=== PATIENT | female | born 1990 | race Caucasian/White ===

== ENCOUNTER 2019-03-29 17:16 | Emergency (ER) | payer MEDICAID, SELFPAY ==
[2019-03-29] VITALS (33 sets, daily range): BP systolic 106–147; BP diastolic 64–107; PULSE 94–136; RESP 14–30; TEMP 36.6; O2SAT 94–98
--- NOTE | 2019-03-29 17:49 | W.ED.GENAD ---
Discharge Plan Disposition Patient Disposition: HOME Condition: Good Discharge Details Chief Complaint: SOB Clinical Impression: CAP (community acquired pneumonia) Primary Care Provider: Jamie Rangel ED Provider: Philippe Mcconnell [place] Meds and New Rx's Prescriptions: New doxycycline hyclate [Morgidox] 100 mg capsule 100 mg PO BID Qty: 14 RF: 0 Continued medroxyprogesterone [Depo-Provera] 150 MG/1 ML suspension 150 mg IM Q 12 WEEKS RF: 0 levothyroxine [Synthroid] 50 MCG tablet 50 mcg PO DAILY RF: 0 albuterol sulfate [ProAir HFA] 90 mcg/actuation Hfa Aerosol Inhaler 2 puff INHALATION Q6H PRNRF: 0 Discontinued azithromycin 250 mg Tablet 250 mg PO DAILY RF: 0 Discharge Instructions Instructions: Doxycycline (By mouth), Community Acquired Pneumonia (ED) Additional Instructions: CT scan shows left-sided pneumonia. We will change your antibiotic from Zithromax to doxycycline. Please remember that this antibiotic will photosensitize your skin. Be sure to rest and drink plenty of fluids. Use ibuprofen or acetaminophen as needed for fever and discomfort. Use inhaler as needed for cough and wheezing. You should discuss with primary care your thyroid medication and dosing. Follow-up with them on Tuesday as planned. Return to ED over the weekend if you develop mental status changes, increasing shortness of breath, vomiting, other concerns Referrals: Jamie Rangel [Primary Care Provider] - Discharge Data Discharge Date/Time-TO BE ENTERED AT DEPARTURE: 03/29/19 21:15 Medical Decision Making <Darnell Wilson MD - Last Filed: 03/30/19 13:49> 18:00 --28-year-old female with history of bronchitis in the remote past that required albuterol, here with productive cough cough for 4 days, seen at OSH earlier today and diagnosed with bronchitis and started on azithromycin and albuterol inhaler, seeking further emergent care for persistent shortness of breath despite albuterol and single dose of azithromycin. Patient is saturating well in no respiratory distress. She is tachycardic and anxious. Of note, her children are sick with similar respiratory illness. I reviewed discharge instructions from [facility]. I requested ED visit note from [facility]. Plan to obtain chest x-ray. Patient has also had an exacerbation over the past month or so of intermittent rectal bleeding. She also notes that she has some upper abdominal epigastric burning intermittently. Patient notes that she has had rectal bleeding intermittently for years and was told that she has irritable bowel syndrome. She has a appointment scheduled with her primary care physician and believes she will be having a colonoscopy soon. Consider anemia. I will check CBC. Patient also notes noncompliance with her medication regimen. She has not been taking Synthroid for the past 6 months. She specifically notes difficulty with transportation and inability to maintain primary care appointments. Plan to check screening labs including CBC to assess for anemia as well as TSH to assess for hypothyroidism. I will give IV fluid bolus given dehydration on exam and tachycardia. --Initial labs reviewed and hypokalemia noted. K-Dur 20meq given. Leukocytosis noted. Chest x-ray reviewed and interpreted by radiology: No acute process. Patient reassessed: patient remained tachycardic after IV fluid bolus although improved from prior. D-dimer was checked and elevated. Plan for CTA of the chest. Patient provided informed consent to proceed with CT. care signed out to Dr. Mcconnell. <Philippe Mcconnell MD - Last Filed: 03/29/19 21:06> Patient signed out to me pending results of CTA. CTA shows no pulmonary embolus. No aortic abnormality. She does have a reticular nodular infiltrate in the left lingula and central left lower lobe. Patient's heart rate has come down with fluids. She is on Zithromax prescribed by [facility]. However, I spoke with her at length about antibiotic resistance in this local area. We know that for us Zithromax no longer covers CAP very well. I will switch her to doxycycline. I did make her aware of the photosensitivity reaction related to doxycycline. She may continue use of the inhaler. She is to rest and drink plenty of fluids to stay hydrated. We also discussed her thyroid and need for restarting her Synthroid. She has follow-up with her primary care doctor on Tuesday. She can further discuss her thyroid issue as well as have recheck of her respiratory status then. Return to ED for increasing shortness of breath, vomiting, mental status changes, other concerns or problems. Lab Data Lab results reviewed: Yes I reviewed the patient's lab results. HPI <Darnell Wilson MD - Last Filed: 03/30/19 13:49> General Mode of arrival: ambulatory. Date/Time Provider Initiated Documentation: 03/29/19 17:22. Limitations to Documentation: no limitations. Information obtained by: patient. HPI Narrative: 28-year-old female with history of hypothyroidism, IBS, here with chief complaint of productive cough and associated shortness of breath. Patient notes symptoms are worsening over the past 4 days. Cough is productive of white and intermittently green sputum. She has 2 children who are sick with similar cough and respiratory illness. She does note that she may have had some subjective fever. Patient was seen at outside hospital emergency department earlier today and diagnosed with bronchitis and prescribed azithromycin and albuterol inhaler which she has initiated without relief of symptoms. Patient also notes she has not been taking her medication as prescribed including Synthroid for the past 6 months. She has had transportation issues. She also notes intermittent rectal bleeding that has been more persistent over the past month or so. She has had associated upper abdominal epigastric burning discomfort. No abdominal pain or bleeding currently. Related Data Home Medications Medication Instructions Recorded Confirmed levothyroxine [Synthroid] 50 mcg PO DAILY 06/11/14 11/08/17 medroxyprogesterone [Depo-Provera] 150 mg IM Q 12 WEEKS vial 11/22/17 albuterol sulfate [ProAir HFA] 2 puff INHALATION Q6H PRN 03/29/19 03/29/19 doxycycline hyclate [Morgidox] 100 mg PO BID #14 cap 03/29/19 Previous Rx's Medication Instructions Recorded doxycycline hyclate [Morgidox] 100 mg PO BID #14 cap 03/29/19 Allergies Allergy/AdvReac Type Severity Reaction Status Date / Time acetaminophen Allergy Intermediate SWELLING Unverified 03/29/19 17:38 [From Tylenol-Codeine] coconut oil Allergy Intermediate lip Unverified 03/29/19 17:38 swelling codeine Allergy Intermediate Swelling/Ed Unverified 03/29/19 17:38 mic codeine phosphate Allergy Intermediate SWELLING Unverified 03/29/19 17:38 [From Tylenol-Codeine] ibuprofen [From Motrin] Allergy Intermediate lips swell Unverified 03/29/19 17:38 General Stated Complaint: SOB ELVIA: 3 Review of Systems <Darnell Wilson MD - Last Filed: 03/30/19 13:49> Review of Systems All systems reviewed & are unremarkable except as noted in HPI and below Constitutional Reports fever(s) Respiratory Reports cough PFSH <Darnell Wilson MD - Last Filed: 03/30/19 13:49> Medical History Abnormal uterine bleeding (AUB) BMI 45.0-49.9, adult Hypothyroid Migraine headache without aura Tobacco use Surgical History Ligation of fallopian tube Family History Mother Diabetes Maternal Aunt Diabetes Social History Smoking/Tobacco Use Status: Current every day Tobacco Type: smokeless tobacco Alcohol Intake: current Alcohol Intake frequency: holidays/special occasions only Drug use: Never Do you feel safe at home: Yes Do you feel safe in your relationship?: Yes Exam <Darnell Wilson MD - Last Filed: 03/30/19 13:49> Const General: cooperative and no acute distress HENMT Mouth: mucous membranes dry Throat: posterior oropharynx normal Eyes Conjunctivae: normal conjunctivae Sclera: normal sclerae Resp Auscultation: no rales, rhonchi lower bilaterally and no wheezes Cardio Jugular venous pressure: no JVD Rate: tachycardic Rhythm: regular rhythm GI Palpation: soft, not firm, no guarding, no masses, not rigid and nontender Skin General skin exam: no rashes or lesions noted Neuro General: alert, awake, oriented x3 and tone normal Extrem General: no edema Psych Appearance: grossly normal Mental Status: mental status grossly normal Speech and Movement: speech and movement normal Affect: anxious affect Course <Darnell Wilson MD - Last Filed: 03/30/19 13:49> Vital Signs Temperature 36.6 C 03/29/19 17:22 Pulse 136 H 03/29/19 17:22 Respiratory Rate 20 03/29/19 17:22 Blood Pressure 120/64 03/29/19 17:22 Pulse Oximetry 96 03/29/19 17:22 Temperature 36.6 C 03/29/19 17:22 Temperature Source Temporal Artery Scan 03/29/19 17:22 Pulse 136 H 03/29/19 17:22 Respiratory Rate 20 03/29/19 17:28 Respiratory Effort 03/29/19 17:28 Respiratory Depth Normal 03/29/19 17:28 Respiratory Pattern Tachypnea 03/29/19 17:28 Blood Pressure 120/64 03/29/19 17:22 Blood Pressure Position Sitting 03/29/19 17:22 Pulse Oximetry 96 03/29/19 17:22 Oxygen Delivery Method Room Air 03/29/19 17:22 Oxygen Flow Rate 0 03/29/19 17:22 Sign Out <Darnell Wilson MD - Last Filed: 03/30/19 13:49> Sign Out Data: Sign Out Comment: care signed out to Dr. Mcconnell with plan to follow-up diagnostics CTA pending and reassess patient for disposition. Last updated by Darnell Wilson MD at 03/29/19 20:11
[2019-03-29] MEDS: Lactated Ringers 1,000 ML 1000 ML IV (18:00)
[2019-03-29 18:13] LABS: Abs Immature Grans 0.04 k/cumm (0.0-0.09); HCT 41.4 % (36.0-46.0); HGB 13.6 g/dL (12.0-15.5); Mean Corp. HGB Concentration 32.9 g/dL (32.0-36.0); Mean Corpuscular Hemoglobin 27.5 pg (27.0-33.0); Mean Corpuscular Volume 83.8 fL (80-95); Mean Platelet Volume 9.8 fL (8.0-11.0); Platelet Count 362 x1000/uL (130-400); RBC 4.94 m/cumm (4.00-5.20); RBC Distribution Width 14.8 % (11.7-14.6); White Blood Cell Count 12.18 k/cumm (4.4-10.8)
[2019-03-29] MEDS: Inhaler, Assist Device 1 EACH MC (18:16)
[2019-03-29 18:24] LABS: Atypical Lymphocytes % 1
[2019-03-29 18:25] LABS: Absolute Eosinophil Count 0.12 k/cumm (0.0-0.7); Absolute Lymphocyte Count 3.17 k/cumm (1.2-3.4); Absolute Monocyte Count 0.61 k/cumm (0.11-0.7); Absolute Neutrophil Count 8.28 k/cumm (1.2-6.7); Diff Comment Manual Differential; RBC Morphology Normal
--- NOTE | 2019-03-29 18:25 | DI.RAD_ITS ---
SYMPTOM/DIAGNOSIS: COUGH, SHORTNESS OF BREATH CHEST X-RAY: PA AND LATERAL. Comparison 09/10/15 Heart size and pulmonary vasculature are within normal limits. No focal consolidating infiltrates, effusions or pneumothoraces identified. There may be mild peribronchial thickening present. The bones are intact. IMPRESSION: Findings which may represent bronchitis. No focal areas of consolidation to suggest pneumonia are seen.
--- NOTE | 2019-03-29 18:31 | DI.VRAD_ITS ---
EXAM: XR Chest, 2 Views EXAM DATE/TIME: 03/29/2019 5:49 PM CLINICAL HISTORY: 28 years old, female; Signs and symptoms; Cough and shortness of breath; Patient HX: Cough for days and SOB TECHNIQUE: Imaging protocol: XR of the chest, 2 views. COMPARISON: CR CHEST 2 VIEWS PA,LAT 09/10/2015 12:16 AM FINDINGS: Lungs: Low lung volumes. Mild peribronchial thickening and perihilar stranding suggesting possible bronchitis. No gross pulmonary infiltrates. Pulmonary vaculature normal. Pleural space: No pleural effusion. No pneumothorax. Heart/Mediastinum: Heart size normal. No mediastinal widening. Bones/joints: No acute osseous abnormalities are identified. Other findings: No tracheal shift. IMPRESSION: 1. Suspect bronchitis. No gross pulmonary infiltrates. 2. Low lung volumes. Dictated and Authenticated by: Reji Shah MD. Ordering:DAVID Patrick MD
[2019-03-29 18:32] LABS: ALT 39 U/L (12-78); AST 22 U/L (15-37); Albumin 3.1 g/dL (3.4-5.0); Alkaline Phosphatase 103 U/L (46-116); Anion Gap 10.3 mmol/L (3-11); BUN 6 mg/dL (7-18); Bilirubin, Total 0.4 mg/dL (0.2-1.0); CO2 25.7 mmol/L (21.0-32.0); Calcium 8.7 mg/dL (8.5-10.1); Chloride 101 mmol/L (98-107); Glucose 175 mg/dL (70-100); Potassium 3.3 mmol/L (3.5-5.1); Sodium 137 mmol/L (136-145); Total Protein 7.5 g/dL (6.4-8.2)
[2019-03-29 18:36] LABS: TSH (W/Ref FT4) 9.38 uIU/mL (0.358-3.74)
[2019-03-29 18:37] LABS: Troponin I < 0.02 ng/mL (0.00-0.06)
[2019-03-29] MEDS: Potassium Chloride 10 MEQ TABCR 20 MEQ PO (18:51)
[2019-03-29 18:54] LABS: FREE T4 1.02 ng/dL (0.76-1.46)
[2019-03-29 19:45] LABS: D-Dimer 826 ng/mlFEU (<500)
--- NOTE | 2019-03-29 19:58 | DI.CT_ITS ---
SYMPTOM/DIAGNOSIS: SHORTNESS OF BREATH, TACHYCARDIA, ELEVATED D-DIMER CT SCAN CHEST, CTA CT angiography was performed with multi slice acquisition and multi planar and 3D reconstruction. CT angiography of the chest was performed. There is no evidence of a pulmonary embolus. The thoracic aorta is of normal caliber. No evidence of an aneurysm or dissection is seen. Heart size is within normal limits. No significant pericardial effusion is seen. No evidence of right heart strain is seen. No significant thoracic adenopathy is seen. The measured lymph nodes are less than 1 cm in size on short axis. No effusion or pneumothorax is identified. No focal consolidating infiltrates are present. The bones are intact. No acute upper abdominal abnormalities identified. IMPRESSION: No evidence of pulmonary embolus, thoracic aortic dissection or aneurysm.
[2019-03-29] MEDS: Omnipaque 350 MG/ML 100 ML BTL IJ (20:24)
--- NOTE | 2019-03-29 20:42 | DI.VRAD_ITS ---
EXAM: CT Angiography Chest With Contrast EXAM DATE/TIME: 03/29/2019 7:59 PM CLINICAL HISTORY: 28 years old, female; Signs and symptoms; Shortness of breath and other: Tachycardia, elevated ddimer TECHNIQUE: Imaging protocol: Axial computed tomographic angiography images of the chest with intravenous contrast using CT angiography protocol. Coronal and sagittal reformatted images were created and reviewed. 3D rendering: MIP reconstructed images were created and reviewed. Radiation optimization: All CT scans at this facility use at least one of these dose optimization techniques: automated exposure control; mA and/or kV adjustment per patient size (includes targeted exams where dose is matched to clinical indication); or iterative reconstruction. Contrast material: 350; Contrast volume: 88 ml; Contrast route: LT AC INJ.; COMPARISON: SC XR CHEST 2V PA LATERAL 03/29/2019 6:24 PM FINDINGS: Pulmonary arteries: The pulmonary arteries enhance appropriately with no evidence of pulmonary embolism. Aorta: The aorta enhances appropriately without evidence of dissection or aneurysm. Thyroid: The visualized thyroid gland demonstrates no gross abnormality. Lungs: No tracheobronchial abnormalities. Minimal reticular nodular pulmonary density is seen in the lingular portion of the left upper lobe and in the perihilar left lower lobe, suspicious for mild reticulonodular infiltrates. No pulmonary nodules or mass lesions are identified. Pleural space: No pleural effusion. No pneumothorax. Heart: Heart size normal. No pericardial effusion. Mediastinum: The esophagus is largely contracted but demonstrates no gross abnormality. Liver: Mild fatty infiltration of the liver . No focal hepatic lesions or intrahepatic biliary dilatation. Lymph nodes: No supraclavicular or axillary adenopathy. There are few mildly prominent prevascular nodes measuring up to 8 mm short axis and a few mildly prominent pretracheal retrocaval nodes measuring up to 9 mm short axis. These are nonspecific. No hilar adenopathy. Bones/joints: No acute osseous abnormalities are identified. Soft tissues: The soft tissues of the chest wall demonstrate no gross abnormality. IMPRESSION: 1. No evidence of pulmonary embolism or aortic dissection. 2. Minimal reticulonodular densities in the lingula and central left lower lobe suspicious for mild reticulonodular infiltrate. 3. Fatty liver. 4. Mildly prominent mediastinal nodes, nonspecific. Dictated and Authenticated by: Reji Shah MD. Ordering:DAVID Patrick MD
== END 2019-03-29 21:15 | disposition home or self-care (01) ==
PROVIDERS: Student in an Organized Health Care Education/Training Program; Emergency Provider Emergency Medicine; PCP Family Medicine
DX: J18.9 Pneumonia, unspecified organism (principal); R00.0 Tachycardia, unspecified; F41.9 Anxiety disorder, unspecified; E87.6 Hypokalemia; K62.5 Hemorrhage of anus and rectum; E03.9 Hypothyroidism, unspecified
CPT/HCPCS: 36415; 71275; 80053; 96360; 99285; 71046; 84439; 84443; 84484; 85025; 85379; 99284; J3490

== ENCOUNTER 2020-10-04 10:11 | Emergency (ER) | payer MEDICAID, SELFPAY ==
--- NOTE | 2020-10-04 10:14 | ED.GENADUL_ITS ---
Discharge Plan Disposition Patient Disposition: HOME Condition: Stable Discharge Details Clinical Impression: Broken tooth Primary Care Provider: Jamie Rangel ED Provider: Vicky Sandoval Home Meds and New Rx's Prescriptions: Continued albuterol sulfate [ProAir HFA] 90 mcg/actuation Hfa Aerosol Inhaler 2 puff INHALATION Q6H PRNRF: 0 acetaminophen [Acetaminophen Extra Strength] 500 mg Tablet 1,000 mg PO Q6H PRNRF: 0 Discharge Instructions Instructions: Acute Dental Trauma (ED) Additional Instructions: Drink plenty of fluids. Follow soft diet for the next few days. Avoid hard foods such as nuts or popcorn which could cause further breakage or pain of your tooth. Take Tylenol as needed and directed for pain. Call a dentist on the dental follow-up list you were given to schedule a follow- up appointment for reevaluation. Return immediately to the emergency department if you develop any worsening or new concerning symptoms such as fever, increased pain, redness, dental or facial swelling. Discharge Data Discharge Physician: Vicky Sandoval Medical Decision Making 29-year-old female presents for evaluation of broken tooth. There is a small chip fracture at tip of tooth #17 noted to anterior lingual wall aspect. No pulp or dentin exposed. There are no signs of infection or abscess. No drooling, trismus or submandibular swelling. I do not see an indication for antibiotics at this time. Patient given dental follow-up list. Advised to follow a soft diet for the next few days. Usual and customary return precautions given prior to discharge. Medical Records Medical records reviewed: Yes I reviewed the patient's medical records. HPI General Mode of arrival: ambulatory . Date/Time Provider Initiated Documentation: 10/04/20 10:12 . Limitations to Documentation: no limitations . Information obtained by: patient . HPI Narrative: Patient is a 29-year-old female who presents for evaluation after she broke a piece of her left posterior lower tooth last night while eating a hard kernel of popcorn. She states she has not having pain but states it just feels on from a sharp edge that is rubbing when she eats or swallows. She denies any fever, swelling, drainage. She denies any facial swelling. She states she has not seen a dentist for the past 3 years due to insurance issues. She states she now has Medicaid and plans to follow-up with a dentist. Related Data Home Medications Medication Instructions Recorded Confirmed albuterol sulfate [ProAir HFA] 2 puff INHALATION Q6H PRN 03/29/19 10/04/20 acetaminophen [Acetaminophen Extra 1,000 mg PO Q6H PRN 10/04/20 10/04/20 Strength] Allergies Allergy/AdvReac Type Severity Reaction Status Date / Time coconut oil Allergy Intermediate lip Unverified 10/04/20 10:21 swelling codeine Allergy Intermediate Swelling/Ed Unverified 10/04/20 10:21 mic codeine phosphate Allergy Intermediate SWELLING Unverified 10/04/20 10:21 [From Tylenol-Codeine] ibuprofen [From Motrin] Allergy Intermediate lips swell Unverified 10/04/20 10:21 General ELVIA: 3 Review of Systems All systems reviewed & are unremarkable except as noted in HPI and below Constitutional Constitutional: Reports as per HPI, Denies chills and Denies fever(s) Eyes Eyes: Denies blurry vision ENT Ears, Nose, Mouth, and Throat: Denies dizziness, Denies sore throat and Denies throat swelling Cardiovascular Cardiovascular: Denies chest pain and Denies dyspnea Respiratory Respiratory: Denies cough and Denies dyspnea Gastrointestinal Gastrointestinal: Denies abdominal pain, Denies diarrhea and Denies vomiting Genitourinary Genitourinary: Denies hematuria and Denies dysuria Musculoskeletal Musculoskeletal: Denies back pain and Denies numbness Integumentary/Breasts Skin/Breast: Denies lesions and Denies rash Neurologic Neurologic: Denies dizziness, Denies localized weakness and Denies numbness Allergic/Immunologic Allergic/Immunologic: Denies throat swelling [facility] Medical History (Updated 10/04/20 @ 10:40 by Vicky Sandoval DO) Abnormal uterine bleeding (AUB) x1yr. 2-3mo of oligomenorrhea followed by several weeks of bleeding. BMI 45.0-49.9, adult Hypothyroid managed by PCP. Migraine headache without aura with menses. 1-2x/w when not menstruating. Tobacco use started as teenager. down to 3 cigarettes/day. Surgical History Ligation of fallopian tube 4yrs ago, after of daughter. Family History Mother Diabetes Maternal Aunt Diabetes Social History Smoking/Tobacco Use Status: Current every day Tobacco Type: smokeless tobacco Smoking risk assessment performed?: Yes Alcohol Intake: current Alcohol Intake frequency: holidays/special occasions only Drug use: Never Do you feel safe at home: Yes Do you feel safe in your relationship?: Yes Exam Const General: cooperative, healthy appearing and no acute distress HENMT Head: normal to inspection Ears: hearing grossly normal bilaterally and external ears normal Mouth: oral mucosae normal Teeth image: 1. Broken edge of tooth #17 on anterior lingual wall aspect and tip. Does not seem to extend to base of tooth and mainly seems that is the superior tip of the tooth. No significant tenderness to palpation of tooth. No surrounding e rythema, edema, drainage or bleeding. No pulp or dentin exposed. Throat: posterior oropharynx normal Eyes General: appearance normal, both eyes and all related structures Neck Neck: normal visual inspection Resp Effort & Inspection: normal respiratory effort and able to speak in complete sentences Cardio Rate: regular rate Skin General skin exam: no rashes or lesions noted Neuro General: patient alert, patient awake and patient oriented x3 Motor: muscle tone normal throughout Extrem General: normal to inspection and full ROM Psych Appearance: grossly normal Affect: normal affect
[2020-10-04 10:15] VITALS: BP 129/85; PULSE 89; RESP 16; TEMP 36.2; O2SAT 97
[2020-10-04 10:52] VITALS: BP 129/85; PULSE 89; RESP 16; TEMP 36.2; O2SAT 97
== END 2020-10-04 10:47 | disposition home or self-care (01) ==
PROVIDERS: Emergency Provider Physician Assistant; PCP Family Medicine
DX: R68.84 Jaw pain; S02.5XXA Fracture of tooth (traumatic), initial encounter for closed fracture; X58.XXXA Exposure to other specified factors, initial encounter
CPT/HCPCS: 99282; 99283

== ENCOUNTER 2021-07-21 13:11 | Outpatient (REF) | payer MEDICAID, SELFPAY ==
[2021-07-21 14:26] LABS: Abs Immature Grans 0.02 10^3/uL (0.0-0.06); Absolute Basophil Count 0.07 10^3/uL (0.0-0.2); Absolute Eosinophil Count 0.17 10^3/uL (0.0-0.7); Absolute Monocyte Count 0.78 10^3/uL (0.1-0.8); Absolute Neutrophil Count 5.23 10^3/uL (1.2-6.7); Basophils % 0.8; Eosinophils % 1.8; HCT 40.5 % (36.0-46.0); Immature Grans % 0.2; Lymphocytes % 32.4; MCHC 32.1 % (32.0-36.0); MCV 87.3 fL (80-95); MPV 10.5 fL (8.0-11.0); Monocytes % 8.4; Neutrophils % 56.4; Nucleated RBC 0 %; Platelet Count 357 10^3/uL (130-400); RBC 4.64 10^6/uL (3.93-5.22); RDW 13.5 % (11.7-14.6); RDW-SD 42.5 fL; WBC 9.27 10^3/uL (4.4-10.8)
[2021-07-21 14:45] LABS: ALT 28 U/L (14-59); AST 11 U/L (15-37); Albumin 3.4 g/dL (3.4-5.0); Alkaline Phosphatase 85 U/L (46-116); Anion Gap 8.3 mmol/L (3-11); BUN 10 mg/dL (7-18); Bilirubin, Total 0.2 mg/dL (0.2-1.0); CO2 27.7 mmol/L (21.0-32.0); CREATININE 0.8 mg/dL (0.55-1.02); Calcium 9.4 mg/dL (8.5-10.1); Chloride 104 mmol/L (98-107); Glucose 100 mg/dL (74-106); Potassium 4.1 mmol/L (3.5-5.1); Sodium 140 mmol/L (136-145); TSH (W/Ref FT4) 8.06 uIU/mL (0.36-3.74); Total Protein 7.4 g/dL (6.4-8.2)
[2021-07-21 15:11] LABS: FREE T4 0.92 ng/dL (0.76-1.46)
[2021-07-23 00:50] LABS: Vitamin D 25 Total 14.7 ng/mL (30-100)
== END 2021-07-21 13:12 | disposition home or self-care (01) ==
LOC: NCHCN 13:11
PROVIDERS: PCP Family Medicine; Visit Provider Family Medicine
DX: E03.9 Hypothyroidism, unspecified (principal); F41.8 Other specified anxiety disorders; E55.9 Vitamin D deficiency, unspecified
CPT/HCPCS: 80053; 82306; 84439; 84443; 85025

== ENCOUNTER 2021-10-29 13:12 | Emergency (ER) | payer MEDICAID, SELFPAY ==
--- NOTE | 2021-10-29 13:15 | DI.CT_ITS ---
Exam(s) CT HEAD WO EXAM: CT HEAD WO CLINICAL HISTORY: Headache. TECHNIQUE: Imaging Protocol: Axial computed tomography images with coronal and sagittal reformatted images were created and reviewed COMPARISON: No exams were available for comparison FINDINGS: Ventricles and Extra axial spaces: Normal in size and morphology for the patient's age. Hemorrhage: None. Cerebral parenchyma: Normal. Midline shift: None. Brainstem/Cerebellum: Normal. Calvarium: Normal. Visualized Paranasal sinuses/Mastoids: Clear. Soft Tissues: Unremarkable. IMPRESSION: 1. No acute intracranial process. 2. Results of this exam have been verbally communicated with provider. RADIATION DOSE DELIVERED: 914.46mGy.cm Total DLP DATA REPOSITORY: All CT scans at this facility are submitted to the National Radiology Data Registry (NRDR) Dose Index Registry (DIR) with the [employer] (ACR). RADIATION OPTIMIZATION: All CT scans at this facility use at least one of these dose optimization te chniques: automated exposure control; mA and/or kV adjustment per patient size (includes targeted exa ms where dose is matched to clinical indication); or iterative reconstruction.
[2021-10-29 13:16] VITALS: BP 144/83; PULSE 74; RESP 18; TEMP 36.3; O2SAT 97
--- NOTE | 2021-10-29 13:41 | W.ED.GENAD ---
Discharge Plan Disposition Patient Disposition: HOME Condition: Improving Discharge Details Clinical Impression: Headache Primary Care Provider: Jamie Rangel ED Provider: Mahsa Edmond Home Meds and New Rx's Prescriptions: New gcnoipouli-uvbdnlqzhoxni-tgni 50-325-40 mg capsule 1 cap PO Q6H PRN (Reason: headache) Qty: 10 RF: 0 No Action acetaminophen 500 mg capsule 1,000 mg PO Q6H PRNRF: 0 ascorbate calcium (vitamin C) 500 mg tablet 500 mg PO DAILY RF: 0 amoxicillin 500 mg capsule 500 mg PO TID RF: 0 Excedrin Migraine 250-250-65 mg Tablet 2 tab PO PRN PRNRF: 0 Discharge Instructions Instructions: General Headache (ED) Additional Instructions: Take the Fioricet 1 tablet 4 times daily as needed for headache. Take the Zofran 20 to 30 minutes before eating or drinking anything up to 3 times daily. Follow up with primary care provider in 3-5 days. Return to ED sooner if any worsening or concerns. Increase oral fluids. Please take Tylenol with food every 4-6 hours as needed for pain and swelling when not taking the Fioricet. Please consider following up with neurology regarding the head CT and to discuss the headaches. Stand Alone Forms: Work Release Referrals: Jamie Rangel [Primary Care Provider] - 5 days Marie Green MD [ [facility] STAFF PHYSICIAN] - 1 week Medical Decision Making 30-year-old female presents to the ER with chief complaint of migraine headache which began yesterday. She reports it started in the back of her neck radiates up around to the left side of her head. She is in the typical migraine however it is worse than normal and has never lasted this long. She did throw up once prior to arrival around noon. She took an Excedrin this morning and Tylenol. She also reports that she has been having a heavier than normal menstrual period but that seems to become angledozer operator today. She denies any recent trauma. No focal neuro deficits noted on exam. She denies any fever or shortness of breath or chest pain or abdominal pain. CBC, CMP, urine , liter normal saline and Zofran ordered. 1434: Liter normal saline, 4 Zofran ordered. IV is infusing without difficulty. Per medical staff credentialing coordinator patient is reporting improvement in her headache. Awaiting CT head results. EXAM: CT HEAD WO CLINICAL HISTORY: Headache. TECHNIQUE: Imaging Protocol: Axial computed tomography images with coronal and sagittal reformatted images were created and reviewed COMPARISON: No exams were available for comparison FINDINGS: Ventricles and Extra axial spaces: Normal in size and morphology for the patient's age. Hemorrhage: None. Cerebral parenchyma: Normal. Midline shift: None. Brainstem/Cerebellum: Normal. Calvarium: Normal. Visualized Paranasal sinuses/Mastoids: Clear. Soft Tissues: Unremarkable. IMPRESSION: 1. No acute intracranial process. 2. Results of this exam have been verbally communicated with provider. Related patient reevaluated she reports that her headache is improving. Discussed CT results with patient and follow-up care. Discussed following up with neurologist to discuss headaches and CT. Prescription written for Fioricet and home care, verbalized understanding. Patient remained hemodynamically stable throughout stay. This text was generated using Kampyleation system, please disregard any oddities of phrase or misspellings. HPI General Mode of arrival: ambulatory. Date/Time Provider Initiated Documentation: 10/29/21 13:22. Limitations to Documentation: no limitations. Information obtained by: patient, RN notes reviewed and old records reviewed. HPI Narrative: 30-year-old female presents to the ER with chief complaint of migraine headache which began yesterday. She reports it started in the back of her neck radiates up around to the left side of her head. She is in the typical migraine however it is worse than normal and has never lasted this long. She did throw up once prior to arrival around noon. She took an Excedrin this morning and Tylenol. She also reports that she has been having a heavier than normal menstrual period but that seems to become angledozer operator today. She denies any recent trauma. No focal neuro deficits noted on exam. She denies any fever or shortness of breath or chest pain or abdominal pain. Related Data Home Medications Medication Instructions Recorded Confirmed ascorbate calcium (vitamin C) 500 500 mg PO DAILY 03/18/21 10/29/21 mg tablet acetaminophen 500 mg capsule 1,000 mg PO Q6H PRN cap 05/27/21 10/29/21 amoxicillin 500 mg PO TID 10/29/21 10/29/21 ciqoari-raxdvshtexiyi-skmgvtby 2 tab PO PRN PRN 10/29/21 10/29/21 [Excedrin Migraine] zsyggsjieb-kdjysvpsmznzh-rkwm 1 cap PO Q6H PRN #10 cap 10/29/21 Previous Rx's Medication Instructions Recorded sslfehuncp-goceycymexrsz-lebv 1 cap PO Q6H PRN #10 cap 10/29/21 Allergies Allergy/AdvReac Type Severity Reaction Status Date / Time coconut oil Allergy Intermediate lip Unverified 10/29/21 13:21 swelling codeine Allergy Intermediate Swelling/Ed Unverified 10/29/21 13:21 mic codeine phosphate Allergy Intermediate SWELLING Unverified 10/29/21 13:21 [From Tylenol-Codeine] ibuprofen [From Motrin] Allergy Intermediate lips swell Unverified 10/29/21 13:21 General Stated Complaint: Headache ELVIA: 3 Review of Systems All systems reviewed & are unremarkable except as noted in HPI and below Constitutional Constitutional: Reports headache(s) ENT Ears, Nose, Mouth, and Throat: Reports headache(s) Neurologic Neurologic: Reports headache(s) PFSH All Active Problems (Updated 10/29/21 @ 15:16 by Mahsa Edmond) Headache (Acute) Bilateral carpal tunnel syndrome (Acute) Medical History Abnormal uterine bleeding (AUB) x1yr. 2-3mo of oligomenorrhea followed by several weeks of bleeding. Anxiety with depression BMI 45.0-49.9, adult Diarrhea Headache, chronic migraine without aura History of IBS Hypothyroid managed by PCP. Insomnia Migraine headache without aura with menses. 1-2x/w when not menstruating. Tibia fracture Tobacco use started as teenager. down to 3 cigarettes/day. Vitamin D deficiency Surgical History H/O bilateral salpingectomy Hx of colonoscopy Ligation of fallopian tube 4yrs ago, after of daughter. Family History Mother Diabetes Thyroid disease Hypertension Chronic mental illness Maternal Aunt Diabetes Maternal Grandfather Heart disease Hypertension Paternal Aunt Diabetes Social History Smoking/Tobacco Use Status: Former Tobacco Use Smoking risk assessment performed?: Yes Alcohol Intake: never Drug use: Never Substance use type: does not use Do you feel safe at home: Yes Do you feel safe in your relationship?: Yes Exam Narrative Exam Narrative: Constitutional: Alert and oriented x3. Appears stated age. Obese body habitus. Head: Normocephalic, no trauma. Eyes: Pupils PERRL, Red reflex noted, EOM's intact. Eyelids symmetrical without lesions, discharge, or swelling. ENT: Bilateral TM's WNL, External ear normal to inspection, no mastoid TTP, swelling, or erythema, Nasal turbinates WNL, no nasal discharge. Normal dentition, Posterior pharynx WNL, no exudate. Chest: RRR, Normal S1, S2, distal pulses intact. Resp: Lungs clear to auscultation bilaterally, no wheezes, rales, or rhonchi. Abdomen: Soft, non-distended, Normoactive bowel sounds all 4 quads. Musculoskeletal: Normal gait, 5/5 strength to all four extremities. Skin: No suspicious rashes or lesions. Capillary refill less than 2 sec. Neurologic: Cranial nerves II-XII intact. Alert and oriented x 3. Motor: No deficits noted. Sensory: Intact bilaterally all 4 extremities. Reflexes: DTR's intact bilaterally.. Hematologic/Lymphatic: No ecchymosis, no lymphadenopathy. Course Vital Signs Vital signs: Vital Signs Temperature 36.3 C L 10/29/21 13:16 Pulse 74 10/29/21 13:16 Respiratory Rate 18 10/29/21 13:16 Blood Pressure 144/83 H 10/29/21 13:16 Pulse Oximetry 97 10/29/21 13:16 Temperature 36.3 C L 10/29/21 13:16 Temperature Source Temporal Artery Scan 10/29/21 13:16 Pulse 74 10/29/21 13:16 Respiratory Rate 18 10/29/21 13:16 Respiratory Effort Non-Labored 10/29/21 13:24 Blood Pressure 144/83 H 10/29/21 13:16 Blood Pressure Position Sitting 10/29/21 13:16 Pulse Oximetry 97 10/29/21 13:16 Oxygen Delivery Method Room Air 10/29/21 13:16 Oxygen Flow Rate 0 10/29/21 13:16
[2021-10-29] MEDS: Normal Saline 1,000 ML 1000 ML IV (13:45)
[2021-10-29] MEDS: Ondansetron 4 MG/2 ML VIAL IVP (13:48)
[2021-10-29 13:59] LABS: Abs Immature Grans 0.03 10^3/uL (0.0-0.06); Absolute Basophil Count 0.06 10^3/uL (0.0-0.2); Absolute Lymphocyte Count 3.08 10^3/uL (1.2-3.4); Absolute Monocyte Count 0.82 10^3/uL (0.1-0.8); Absolute Neutrophil Count 5.06 10^3/uL (1.2-6.7); Basophils % 0.6; Eosinophils % 2.2; HGB 12.5 g/dL (11.2-15.7); Immature Grans % 0.3; Lymphocytes % 33.3; MCH 26.9 pg (27.0-33.0); MCHC 32.1 % (32.0-36.0); MCV 83.9 fL (80-95); Monocytes % 8.9; Neutrophils % 54.7; Nucleated RBC 0 %; Platelet Count 341 10^3/uL (130-400); RBC 4.65 10^6/uL (3.93-5.22); RDW 13.8 % (11.7-14.6); RDW-SD 41.9 fL; WBC 9.25 10^3/uL (4.4-10.8)
[2021-10-29 14:18] LABS: ALT 24 U/L (14-59); AST 15 U/L (15-37); Albumin 3.4 g/dL (3.4-5.0); Alkaline Phosphatase 88 U/L (46-116); Anion Gap 8.2 mmol/L (3-11); BUN 13 mg/dL (7-18); Bilirubin, Total 0.2 mg/dL (0.2-1.0); CO2 26.8 mmol/L (21.0-32.0); CREATININE 0.8 mg/dL (0.55-1.02); Calcium 8.9 mg/dL (8.5-10.1); Chloride 104 mmol/L (98-107); Glucose 100 mg/dL (74-106); Potassium 3.8 mmol/L (3.5-5.1); Sodium 139 mmol/L (136-145); Total Protein 7.8 g/dL (6.4-8.2)
[2021-10-29 15:00] VITALS: BP 124/80; PULSE 87; RESP 18; TEMP 36.2; O2SAT 98
[2021-10-29] MEDS: Ondansetron O.D.T. 4 MG TABEF, 3 TABS/BTL PO (15:22)
[2021-10-29 15:23] VITALS: BP 124/80; PULSE 87; RESP 18; TEMP 36.2; O2SAT 98
--- NOTE | 2021-10-29 15:25 | NUR.NOTE ---
Faxed referral for Neurology for a migraine in 1-2 weeks. Put the referral in the hospice care consultant's box for follow-up.
== END 2021-10-29 15:33 | disposition home or self-care (01) ==
PROVIDERS: Emergency Provider Registered Nurse Emergency; PCP Family Medicine
DX: G43.909 Migraine, unspecified, not intractable, without status migrainosus (principal); R11.10 Vomiting, unspecified
CPT/HCPCS: 36415; 80053; 81025; 96361; 96374; 99284; 70450; 85025; 99283; J2405

== ENCOUNTER 2021-12-10 12:03 | Outpatient (REF) | payer MEDICAID, SELFPAY ==
[2021-12-10 12:34] LABS: HCT 36.9 % (36.0-46.0); HGB 11.7 g/dL (11.2-15.7); MCHC 31.7 % (32.0-36.0); MPV 9.4 fL (8.0-11.0); Platelet Count 341 10^3/uL (130-400); RBC 4.34 10^6/uL (3.93-5.22); WBC 8.94 10^3/uL (4.4-10.8)
[2021-12-10 13:44] LABS: COVID-19 PCR Negative (Negative)
[2021-12-10 13:48] LABS: ALT 28 U/L (14-59); AST 13 U/L (15-37); Albumin 3.3 g/dL (3.4-5.0); Alkaline Phosphatase 95 U/L (46-116); Anion Gap 9.9 mmol/L (3-11); BUN 8 mg/dL (7-18); Bilirubin, Total 0.2 mg/dL (0.2-1.0); CO2 25.1 mmol/L (21.0-32.0); CREATININE 0.8 mg/dL (0.55-1.02); Calcium 8.8 mg/dL (8.5-10.1); Chloride 104 mmol/L (98-107); Glucose 126 mg/dL (74-106); Sodium 139 mmol/L (136-145)
[2021-12-10 13:49] LABS: Source Nasal
== END 2021-12-10 12:04 | disposition home or self-care (01) ==
LOC: LBO 12:03
PROVIDERS: PCP Family Medicine; Visit Provider Surgery
DX: K62.5 Hemorrhage of anus and rectum (principal); Z01.818 Encounter for other preprocedural examination; Z68.43 Body mass index [BMI] 50.0-59.9, adult; Z87.19 Personal history of other diseases of the digestive system; E03.9 Hypothyroidism, unspecified
CPT/HCPCS: 36415; 80053; 85027; 87635

== ENCOUNTER 2022-02-15 05:34 | Outpatient (CLI) | payer MEDICAID, SELFPAY ==
--- NOTE | 2022-02-15 14:00 | NS.NUTBLAN_ITS ---
Poppy was referred for weight management education prior to bariatric surgery. Over the years, she has tried many diets including keto, intermittent fasting, vegan and lower carb without any significant results. 5'1 297 lbs BMI: 54 Labs (2019): Vit D: 14.7 L, TSH: 8.06 H Fasting blood sugar (12/10/21): 126 mg/dl Poppy reports she was 98 lbs when she became with her first child. She gained > 100 lbs with but was able to maintain a weight of 150 lbs. After her second and third child, she started to increase in weight so by the time she became 28, she was 298 lbs. Poppy had gestational diabetes with last 2 kids and has strong family hx of obesity, DM and heart disease. Her two youngest children are autistic and she needs to be healthy to care for them. Her goal weight is 180-190 lbs. She does not take Vitamin D or medications for hypothyroidism. She gets food stamps but it does not last the month. She can only work 1 day per week due to knee/back pain. Her current boy friend lives with her but enjoys eating out and big meals. Food Record: B: breakfast sandwich, premier protein shake, L: skips, often snacks on gold fish, Dinner: salad/vegetable when they can afford it, often pasta. Session today focused on explaining how weight loss surgery affects food intake and weight. Provided written material and meal plan to follow prior to surgery. Focus for Poppy at this time is to start Vitamin D supplementation for repletion and to increase protein intake mid day to help avoid snacking on chips, crackers. Plan: 1. follow up with PCP re: prescription for Vitamin D and ask if needs medications for hypothyroidism. 2. follow up scheduled for 03/22/22 at 2 pm.
== END 2022-02-15 05:35 | disposition home or self-care (01) ==
LOC: DS 05:34
PROVIDERS: PCP Family Medicine; Visit Provider Dietitian, Registered
DX: E66.8 Other obesity (principal); Z68.43 Body mass index [BMI] 50.0-59.9, adult; Z71.3 Dietary counseling and surveillance
CPT/HCPCS: 97802

== ENCOUNTER 2022-12-27 15:51 | Outpatient (REF) | payer MEDICAID, SELFPAY ==
[2022-12-27 19:38] LABS: Abs Immature Grans 0.03 10^3/uL (0.0-0.06); Absolute Basophil Count 0.07 10^3/uL (0.0-0.2); Absolute Eosinophil Count 0.18 10^3/uL (0.0-0.7); Absolute Lymphocyte Count 2.85 10^3/uL (1.2-3.4); Absolute Monocyte Count 0.79 10^3/uL (0.1-0.8); Absolute Neutrophil Count 5.25 10^3/uL (1.2-6.7); Basophils % 0.8; HCT 39.4 % (36.0-46.0); HGB 12.1 g/dL (11.2-15.7); Immature Grans % 0.3; Lymphocytes % 31.1; MCH 25.5 pg (27.0-33.0); MCHC 30.7 % (32.0-36.0); MCV 83 fL (80-95); Monocytes % 8.6; Neutrophils % 57.2; Platelet Count 386 10^3/uL (130-400); RBC 4.74 10^6/uL (3.93-5.22); RDW 14.6 % (11.7-14.6); RDW-SD 43.9 fL; WBC 9.17 10^3/uL (4.4-10.8)
[2022-12-27 19:47] LABS: Iron 33 ug/dL (50-170); Total Iron Binding Capacity 439 ug/dL (250-450); Transferrin Sat 8 % (15-50)
[2022-12-27 20:12] LABS: Vitamin D 25 Total 8.8 ng/mL (30-100)
[2022-12-27 20:15] LABS: ALT 27 U/L (14-59); AST 13 U/L (15-37); Albumin 3.4 g/dL (3.4-5.0); Alkaline Phosphatase 96 U/L (46-116); Anion Gap 9.5 mmol/L (3-11); BUN 12 mg/dL (7-18); Bilirubin, Total 0.2 mg/dL (0.2-1.0); CO2 26.5 mmol/L (21.0-32.0); CREATININE 0.9 mg/dL (0.55-1.02); Calculated LDL 88 mg/dL (<100); Chloride 105 mmol/L (98-107); Cholesterol 149 mg/dL (<200); Estimated GFR 86.03 (mL/min/1.73m2); Folate 4.1 ng/mL (8.6-20.0); Glucose 86 mg/dL (74-106); HDL Cholesterol 40 mg/dL (40-60); Magnesium 1.9 mg/dL (1.8-2.4); Potassium 4.4 mmol/L (3.5-5.1); Sodium 141 mmol/L (136-145); TSH (W/Ref FT4) 5.65 uIU/mL (0.36-3.74); Total Protein 7.4 g/dL (6.4-8.2); Triglyceride 107 mg/dL (<150); Vitamin B12 278 pg/mL (193-986)
[2022-12-27 20:39] LABS: FREE T4 0.89 ng/dL (0.76-1.46)
== END 2022-12-27 15:52 | disposition home or self-care (01) ==
LOC: NCHCN 15:51
PROVIDERS: PCP Family Medicine; Visit Provider Nurse Practitioner Family
DX: R53.83 Other fatigue (principal); E03.9 Hypothyroidism, unspecified; N92.0 Excessive and frequent menstruation with regular cycle; E66.01 Morbid (severe) obesity due to excess calories; E46 Unspecified protein-calorie malnutrition; E55.9 Vitamin D deficiency, unspecified
CPT/HCPCS: 80053; 80061; 82306; 82607; 82746; 83540; 83550; 83735; 84439; 84443; 85025

== ENCOUNTER 2023-12-12 23:22 | Emergency (ER) | payer MEDICAID, SELFPAY ==
[2023-12-12 23:30] VITALS: BP 182/119; PULSE 127; RESP 24; TEMP 36.6; O2SAT 98
--- NOTE | 2023-12-12 23:58 | ED.GENADUL_ITS ---
HPI General Mode of arrival: ambulatory . Date/Time Provider Initiated Documentation: 12/12/23 23:23 . Limitations to Documentation: no limitations . Information obtained by: patient . History of Present Illness 33 year old F presents to the emergency department with the chief complaint of Rectal pain, described as moderate, Quality is described as sharp, Patient started experiencing this day(s) (2) and it has been constant. No relieving factors improve symptom(s), No exacerbating factors reported . Patient notes no other symptoms.; denies fever/chills. Patient did receive the following treatments prior to arrival, none Related Data Home Medications Medication Instructions Recorded Confirmed acetaminophen 500 mg capsule 1,000 mg PO Q6H PRN 05/27/21 12/12/23 ucriuhpvpw-zxpjwhufixlas-srzwsivi 1 cap PO Q6H PRN headache #10 caps 10/29/21 12/12/23 50 mg-325 mg-40 mg capsule ascorbate calcium (vitamin C) 500 500 mg PO DAILY 11/27/21 12/12/23 mg tablet ascorbic acid 100 mg-elderberry 1 tab PO PRN 11/27/21 12/12/23 fruit 50 mg chewable tablet (Airborne (elderberry)) fluoxetine 20 mg capsule 20 mg PO DAILY 11/27/21 12/12/23 multivitamin 1 tab PO DAILY 11/27/21 12/12/23 calcium carbonate 600 mg calcium 600 mg PO DAILY 12/10/21 12/12/23 (1,500 mg) tablet (Calcium) cholecalciferol (vitamin D3) 50 50 mcg PO DAILY 12/10/21 12/12/23 mcg (2,000 unit) capsule Previous Rx's Medication Instructions Recorded cwsekvizpt-zrvveijiekaga-nprlkups 1 cap PO Q6H PRN headache #10 caps 10/29/21 50 mg-325 mg-40 mg capsule Allergies Allergy/AdvReac Type Severity Reaction Status Date / Time coconut oil Allergy Intermediate lip Unverified 12/12/23 23:35 swelling codeine Allergy Intermediate Swelling/Ed Unverified 12/12/23 23:35 mic codeine phosphate Allergy Intermediate SWELLING Unverified 12/12/23 23:35 [From Tylenol-Codeine] ibuprofen [From Motrin] Allergy Intermediate lips swell Unverified 12/12/23 23:35 General Stated Complaint: GenMedical ELVIA: 3 Review of Systems All systems reviewed & are unremarkable except as noted in HPI and below Constitutional Constitutional: Denies chills, Denies fever(s) and Denies weakness ENT Ears, Nose, Mouth, and Throat: Denies change in voice Cardiovascular Cardiovascular: Denies chest pain and Denies dyspnea Respiratory Respiratory: Denies cough and Denies dyspnea Gastrointestinal Gastrointestinal: Denies abdominal pain, Denies nausea and Denies vomiting Musculoskeletal Musculoskeletal: Denies joint swelling Neurologic Neurologic: Denies weakness Exam Const General: no acute distress Orientation: alert HENMT Head: normal to inspection Ears: external ears normal General nose exam: external nose normal Mouth: moist mucous membranes Eyes General: appearance normal, both eyes and all related structures Neck Neck: normal visual inspection Resp Effort & Inspection: normal respiratory effort and able to speak in complete sentences Cardio Rate: regular rate GI Palpation: soft and nontender Skin General skin exam: no rashes or lesions noted Neuro General: patient alert and patient oriented x3 Extrem General: normal to inspection Psych Mental Status: mental status grossly normal Course Vital Signs Vital signs: Vital Signs Temperature 36.6 C 12/12/23 23:30 Pulse 127 H 12/12/23 23:30 Respiratory Rate 24 12/12/23 23:30 Blood Pressure 182/119 H 12/12/23 23:30 Pulse Oximetry 98 12/12/23 23:30 Temperature 36.6 C 12/12/23 23:30 Temperature Source Temporal Artery Scan 12/12/23 23:30 Pulse 127 H 12/12/23 23:30 Respiratory Rate 24 12/12/23 23:30 Blood Pressure 182/119 H 12/12/23 23:30 Blood Pressure Position Standing 12/12/23 23:30 Pulse Oximetry 98 12/12/23 23:30 Oxygen Delivery Method Room Air 12/12/23 23:30 Oxygen Flow Rate 0 12/12/23 23:30 Pain Level 10 12/12/23 23:30 Comment pt unable to sit 12/12/23 23:30 Medical Decision Making 33-year-old female with a history of prior issues with her rectum including rectal fissures, IBS, who comes in with 2 days of worsening rectal pain similar to prior episodes of her fissures. Denies any abdominal pain or vomiting, no fevers, no bloody bowel movements. On exam her abdomen is soft and nontender. Using nurse marketing systems analyst Asael Pandey, performed rectal exam no visible fissure on exam does have a 2 mm nonthrombosed hemorrhoid at the 9 o'clock position no other abnormalities or bleeding noted. Will place lidocaine and reassess Patient feeling better, states that she feels it would be easier to apply lidocaine with the syringe that we have so 1 was given for her to go home with, she will follow-up with her primary care provider and return precautions given Differential Diagnosis Differential Diagnosis: Hemorrhoid, anal fissure Quality:SDOH Health Related Social Needs: No Data to Display PFSH All Active Problems (Updated 12/13/23 @ 01:00 by Dm Riley MD) Pain, rectal (Acute) Hypoalbuminemia due to protein-calorie malnutrition (Acute) Weight gain (Acute) Elevated glucose (Acute) BMI 50.0-59.9, adult (Acute) Preop testing (Acute) Rectal pain (Acute) Rectal bleeding (Acute) Bilateral carpal tunnel syndrome (Acute) Medical History Abnormal uterine bleeding (AUB) x1yr. 2-3mo of oligomenorrhea followed by several weeks of bleeding. Anxiety with depression BMI 45.0-49.9, adult Diarrhea Headache, chronic migraine without aura History of IBS Hypothyroid managed by PCP. Insomnia Migraine headache without aura with menses. 1-2x/w when not menstruating. Tibia fracture Tobacco use started as teenager. down to 3 cigarettes/day. Vitamin D deficiency Surgical History H/O bilateral salpingectomy Hx of colonoscopy Ligation of fallopian tube 4yrs ago, after of daughter. Family History Mother Diabetes Thyroid disease Hypertension Chronic mental illness Maternal Aunt Diabetes Maternal Grandfather Heart disease Hypertension Paternal Aunt Diabetes Social History Smoking/Tobacco Use Status: Former Tobacco Use Smoking risk assessment performed?: Yes Alcohol Intake: never Drug use: Never Substance use type: does not use Do you feel safe at home: Yes Do you feel safe in your relationship?: Yes Discharge Plan Disposition Patient Disposition: Home Condition: Stable Discharge Details Clinical Impression: Pain, rectal Primary Care Provider: Noam Ferreira ED Provider: Dm Riley Home Meds and New Rx's Prescriptions: Continued acetaminophen 500 mg capsule 1,000 mg PO Q6H PRN calcium carbonate [Calcium 600] 600 mg calcium (1,500 mg) tablet 600 mg PO DAILY cholecalciferol (vitamin D3) 50 mcg (2,000 unit) capsule 50 mcg PO DAILY fluoxetine 20 mg capsule 20 mg PO DAILY ascorbic acid-elderberry fruit [Airborne (elderberry)] 100-50 mg tablet,chewable 1 tab PO PRN ascorbate calcium (vitamin C) 500 mg tablet 500 mg PO DAILY multivitamin Tablet 1 tab PO DAILY bhucscjgjj-waokkqsnmupjh-gove 50-325-40 mg capsule 1 cap PO Q6H PRN (Reason: headache) Qty: 10 0RF Rx Instructions: Do not take more than 6 tablets in 24 hours Discharge Instructions Additional Instructions: You have a small nonthrombosed hemorrhoid, the rest of your rectal exam appeared normal Follow-up with your primary care provider within 1 to 2 weeks If you feel more ill, have severe abdominal pain, or new symptoms such as high fevers return to the emergency department
[2023-12-13] MEDS: Lidocaine 2% Jelly 6 ML SYR TP ×2 (00:57→01:06)
[2023-12-13 00:59] VITALS: BP 204/116; PULSE 128; RESP 24; TEMP 36.6; O2SAT 100
[2023-12-13 01:00] VITALS: RESP 18
[2023-12-13 01:02] VITALS: BP 178/100; PULSE 100; RESP 18; O2SAT 100
== END 2023-12-13 01:08 | disposition home or self-care (01) ==
LOC: ER 12-13 01:58
PROVIDERS: Emergency Provider Emergency Medicine; PCP Family Medicine
DX: K62.89 Other specified diseases of anus and rectum (principal); K64.4 Residual hemorrhoidal skin tags; Z87.891 Personal history of nicotine dependence
CPT/HCPCS: 99283; 99282

== ENCOUNTER 2024-01-20 14:55 | Observation (INO) | payer MEDICAID, SELFPAY ==
[2024-01-20] MEDS: Lactated Ringers 1,000 ML 50 ML IV (14:55)
[2024-01-20 14:58] VITALS: BP 144/90; PULSE 96; RESP 20; TEMP 36.7; O2SAT 95
--- NOTE | 2024-01-20 15:27 | W.ED.GENAD ---
Discharge Plan Disposition Patient Disposition: Admit to [facility] Condition: Stable Discharge Details Chief Complaint: GenMedical Clinical Impression: External hemorrhoid, thrombosed Primary Care Provider: Noam Ferreiar ED Provider: Darnell Wilson Home Meds and New Rx's Prescriptions: No Action acetaminophen 500 mg capsule 1,000 mg PO Q6H PRN fluoxetine 20 mg capsule 20 mg PO DAILY yxccrpddes-xkijlgczoxsxf-llon 50-325-40 mg capsule 1 cap PO Q6H PRN (Reason: headache) Qty: 10 0RF Rx Instructions: Do not take more than 6 tablets in 24 hours HPI General Mode of arrival: ambulatory. Date/Time Provider Initiated Documentation: 01/20/24 15:08. Limitations to Documentation: no limitations. Information obtained by: patient. HPI Narrative: 33-year-old female presents with chief complaint of hemorrhoid. Patient notes since July she has been having waxing and waning rectal pain with hemorrhoid and fissure. She states that she has irregular bowel movements and is often constipated. She has had significant difficulty maintaining outpatient appointments to address this condition. Symptoms have worsened over the past few days. She is now not able to sit or lie supine secondary to pain. She is having difficulty sleeping. Patient has been using steroid cream, lidocaine cream and some other compounded cream over the past few months and this is not currently providing relief. Patient does note some associated rectal bleeding intermittently. Related Data Home Medications Medication Instructions Recorded Confirmed acetaminophen 500 mg capsule 1,000 mg PO Q6H PRN 05/27/21 01/20/24 kkoywkvbvv-kxsmgyylewvrp-lxsinjqn 1 cap PO Q6H PRN headache #10 caps 10/29/21 01/20/24 50 mg-325 mg-40 mg capsule fluoxetine 20 mg capsule 20 mg PO DAILY 11/27/21 01/20/24 Previous Rx's Medication Instructions Recorded nxsvdaunaf-afwbfkaiayrje-yjycwbsc 1 cap PO Q6H PRN headache #10 caps 10/29/21 50 mg-325 mg-40 mg capsule Allergies Allergy/AdvReac Type Severity Reaction Status Date / Time coconut oil Allergy Intermediate lip Unverified 01/20/24 15:02 swelling codeine Allergy Intermediate Swelling/Ed Unverified 01/20/24 15:02 mic codeine phosphate Allergy Intermediate SWELLING Unverified 01/20/24 15:02 [From Tylenol-Codeine] ibuprofen [From Motrin] Allergy Intermediate lips swell Unverified 01/20/24 15:02 General Stated Complaint: GenMedical ELVIA: 3 Review of Systems Constitutional Constitutional: Denies fever(s) Gastrointestinal Gastrointestinal: Reports as per HPI Exam Const General: cooperative, uncomfortable and no acute distress HENMT Mouth: moist mucous membranes GI Palpation: soft, not firm, no guarding, not rigid and nontender Rectal Exam - female: hemorrhoids (large inflamed hemorrhoid 2:00) and No laceration Skin General skin exam: no rashes or lesions noted Course Vital Signs Vital signs: Vital Signs Temperature 36.7 C 01/20/24 14:58 Pulse 96 H 01/20/24 14:58 Respiratory Rate 20 01/20/24 14:58 Blood Pressure 144/90 H 01/20/24 14:58 Pulse Oximetry 95 01/20/24 14:58 Temperature 36.7 C 01/20/24 14:58 Temperature Source Skin 01/20/24 14:58 Pulse 96 H 01/20/24 14:58 Respiratory Rate 20 01/20/24 14:58 Respiratory Effort Normal 01/20/24 15:01 Blood Pressure 144/90 H 01/20/24 14:58 Blood Pressure Position Standing 01/20/24 14:58 Pulse Oximetry 95 01/20/24 14:58 Oxygen Delivery Method Room Air 01/20/24 14:58 Oxygen Flow Rate 0 01/20/24 14:58 Medical Decision Making 1532??33-year-old female here with painful inflamed hemorrhoid. It sounds like she has been dealing with hemorrhoids and also potentially rectal fissure for months. I have contacted general surgeon on-call, Dr. Brito, discussed ED presentation and course, I have asked him to evaluate the patient for potential surgical treatment. 1622 --patient was evaluated by Dr. Brito who will plan for emergent surgical intervention. Patient admitted to the surgical service. Care transition to Dr. Brito. Quality:SDOH Health Related Social Needs: No Data to Display PFSH All Active Problems (Updated 01/20/24 @ 16:23 by Darnell Wilson MD) External hemorrhoid, thrombosed (Acute) Hypoalbuminemia due to protein-calorie malnutrition (Acute) Weight gain (Acute) Elevated glucose (Acute) BMI 50.0-59.9, adult (Acute) Preop testing (Acute) Rectal pain (Acute) Rectal bleeding (Acute) Bilateral carpal tunnel syndrome (Acute) Medical History History of IBS Diarrhea Headache, chronic migraine without aura Insomnia Tibia fracture Anxiety with depression Vitamin D deficiency Tobacco use started as teenager. down to 3 cigarettes/day. Abnormal uterine bleeding (AUB) x1yr. 2-3mo of oligomenorrhea followed by several weeks of bleeding. BMI 45.0-49.9, adult Hypothyroid managed by PCP. Migraine headache without aura with menses. 1-2x/w when not menstruating. Surgical History H/O bilateral salpingectomy Hx of colonoscopy Ligation of fallopian tube 4yrs ago, after of daughter. Family History Mother Diabetes Thyroid disease Hypertension Chronic mental illness Maternal Aunt Diabetes Maternal Grandfather Heart disease Hypertension Paternal Aunt Diabetes Social History Smoking/Tobacco Use Status: Former Tobacco Use Smoking risk assessment performed?: Yes Alcohol Intake: never Drug use: Never Substance use type: does not use Do you feel safe at home: Yes Do you feel safe in your relationship?: Yes
--- NOTE | 2024-01-20 16:08 | W.ANESPRE ---
General Info Date of Service Date Performed: 01/20/24 Height: 5 ft Weight: 127.006 kg Body Mass Index (BMI): 54.6 Meds Allergies and Home Medications Allergies Allergy/AdvReac Type Severity Reaction Status Date / Time coconut oil Allergy Intermediate lip Unverified 01/20/24 15:02 swelling codeine Allergy Intermediate Swelling/Ed Unverified 01/20/24 15:02 mic codeine phosphate Allergy Intermediate SWELLING Unverified 01/20/24 15:02 [From Tylenol-Codeine] ibuprofen [From Motrin] Allergy Intermediate lips swell Unverified 01/20/24 15:02 Home Medication Medication Instructions Recorded acetaminophen 500 mg capsule 1,000 mg PO Q6H PRN 05/27/21 [id number]-luvueupkaswef-nbwpqijp 1 cap PO Q6H PRN headache #10 caps 10/29/21 50 mg-325 mg-40 mg capsule fluoxetine 20 mg capsule 20 mg PO DAILY 11/27/21 PFSH Active Problems Active Problems: Problem Status Onset Code Hypoalbuminemia due to protein-calorie malnutrition E88.09, E46 Weight gain R63.5 Elevated glucose R73.09 BMI 50.0-59.9, adult Z68.43 Preop testing Z01.818 Rectal pain K62.89 Rectal bleeding K62.5 Bilateral carpal tunnel syndrome G56.03 Medical History Medical History History of IBS Diarrhea Headache, chronic migraine without aura Insomnia Tibia fracture Anxiety with depression Vitamin D deficiency Tobacco use started as teenager. down to 3 cigarettes/day. Abnormal uterine bleeding (AUB) x1yr. 2-3mo of oligomenorrhea followed by several weeks of bleeding. BMI 45.0-49.9, adult Hypothyroid managed by PCP. Migraine headache without aura with menses. 1-2x/w when not menstruating. Surgical History Surgical History H/O bilateral salpingectomy Hx of colonoscopy Ligation of fallopian tube 4yrs ago, after of daughter. Tobacco Smoking/Tobacco Use Status: Former Tobacco Use Alcohol Alcohol Intake: never Substance Use Substance use: Never Substance use type: does not use Vital Signs and Lab Results Vital Signs Most Recent Vital Signs in EMR: Most Recent Vital Signs Temp Pulse Resp BP Pulse Ox 36.7 C 96 H 20 144/90 H 95 01/20/24 14:58 01/20/24 14:58 01/20/24 14:58 01/20/24 14:58 01/20/24 14:58 Lab Results Blood Type / Crossmatch: No Data to Display Complete Blood Count: No Data to Display Complete Metabolic Panel: No Data to Display Liver Function Panel: No Data to Display Coagulation Panel: No Data to Display Cardiac Panel: No Data to Display Arterial Blood Gas: No Data to Display Venous Blood Gas: No Data to Display Pancreas Panel: No Data to Display Thyroid Panel: No Data to Display Infectious Disease: No Data to Display Blood Cultures: No Data to Display Toxicology Panel: No Data to Display Panel: No Data to Display Anesthesia Assessment and Plan Anesthesia History Personal History: No History of Anesthesia Complications Family History: No Family History of Anesthesia Complications Exercise Tolerance Exercise Tolerance: Metabolic Equivalents>4 Cardiac & Pulmonary Exam Cardiac Exam: Normal S1/S2 Heart Sounds Pulmonary Exam: Clear Bilateral Breath Sounds Implantable Cardiac Device Does patient have a Pacemaker or an ICD?: No Airway Exam Known Difficult Airway: No Mallampati Class: 1 Mouth Opening: Normal (> 3cm) Thyromental Distance: Greater than 3 cm Neck Range of Motion: Full ROM Neck Circumference: Thick Teeth Condition: Normal Dentition ASA Classification ASA Score: ASA 3 Emergency Case?: No NPO Status NPO Status: NPO Small Non-Fatty Meal >6 hours Status Status: Negative HCG Anesthesia Plan Resuscitation Status: Full Code Anesthesia Technique: Spinal Anesthesia Airway Planned: Natural Airway Monitors Used: Standard Monitors
--- NOTE | 2024-01-20 16:11 | W.PREOPHP ---
Assessment and Plan Assessment and plan (1) External hemorrhoid, thrombosed: Status: Acute Assessment and plan: based on the history and general appearance, I suspect this is most likely a thrombosed external hemorrhoid. I think the best option is anorectal exam under anesthesia and hemorroidectomy, or adjustment of the surgical plan based on what is seen. I think she has a good understanding of what to expect in terms of the risks and benefits of the procedures as well as the recovery. She was able to provide informed consent today and we will proceed to the OR as soon as possible. History of Present Illness History of Present Illness Chief Complaint: Anal pain Narrative: Poppy is 33 years old. She comes to the ER after referral from urgent care. She has had several months of hemorrhoid pain. She was seen there around July with similar complaints. She also reports a history of waxing and waning constipation and diarrhea. She underwent colonoscopy at that time and was diagnosed with hemorrhoids and anal fissure. She was prescribed topical ointments, suppositories and some type of compounded ointment (she does not recall if it is diltiazem or nitroglycerine). She has had moderate success with those therapies up until a few days ago, when the pain around the anus became acutely more intense. This was associated with some occasional blood on the toilet paper. She also reports the subjective sensation of a lump in the area. Review of Systems Constitutional Constitutional: Denies chills, Denies fatigue, Denies fever(s) and Denies poor appetite Eyes Eyes: Reports system reviewed and no additional complaints, except as documented ENT Ears, Nose, Mouth, and Throat: Reports system reviewed and no additional complaints, except as documented Cardiovascular Cardiovascular: Denies chest pain and Denies dyspnea Respiratory Respiratory: Denies chest congestion, Denies cough and Denies dyspnea Gastrointestinal Gastrointestinal: Denies change in bowel habits Musculoskeletal Comments: anal pain with sitting and walking Neurologic Neurologic: Reports system reviewed and no additional complaints, except as documented Psychiatric Psychiatric: Reports system reviewed and no additional complaints, except as documented Endocrine Endocrine: Denies fatigue Hematologic/Lymphatic Hematologic/Lymphatic: Denies easy bleeding and Denies easy bruising PFSH All Active Problems (Updated 01/20/24 @ 16:23 by Darnell Wilson MD) External hemorrhoid, thrombosed (Acute) Hypoalbuminemia due to protein-calorie malnutrition (Acute) Weight gain (Acute) Elevated glucose (Acute) BMI 50.0-59.9, adult (Acute) Preop testing (Acute) Rectal pain (Acute) Rectal bleeding (Acute) Bilateral carpal tunnel syndrome (Acute) Medical History History of IBS Diarrhea Headache, chronic migraine without aura Insomnia Tibia fracture Anxiety with depression Vitamin D deficiency Tobacco use started as teenager. down to 3 cigarettes/day. Abnormal uterine bleeding (AUB) x1yr. 2-3mo of oligomenorrhea followed by several weeks of bleeding. BMI 45.0-49.9, adult Hypothyroid managed by PCP. Migraine headache without aura with menses. 1-2x/w when not menstruating. Surgical History H/O bilateral salpingectomy Hx of colonoscopy Ligation of fallopian tube 4yrs ago, after of daughter. Family History Mother Diabetes Thyroid disease Hypertension Chronic mental illness Maternal Aunt Diabetes Maternal Grandfather Heart disease Hypertension Paternal Aunt Diabetes Social History Smoking/Tobacco Use Status: Former Tobacco Use Smoking risk assessment performed?: Yes Alcohol Intake: never Drug use: Never Substance use type: does not use Do you feel safe at home: Yes Do you feel safe in your relationship?: Yes Meds Allergies and Home Medications Allergies Allergy/AdvReac Type Severity Reaction Status Date / Time coconut oil Allergy Intermediate lip Unverified 01/20/24 15:02 swelling codeine Allergy Intermediate Swelling/Ed Unverified 01/20/24 15:02 mic codeine phosphate Allergy Intermediate SWELLING Unverified 01/20/24 15:02 [From Tylenol-Codeine] ibuprofen [From Motrin] Allergy Intermediate lips swell Unverified 01/20/24 15:02 Home Medications Medication Instructions Recorded Confirmed Type acetaminophen 500 mg capsule 1,000 mg PO Q6H PRN 05/27/21 01/20/24 History pfwuotzple-tgsffgzphzxzd-hevkihwd 1 cap PO Q6H PRN headache #10 caps 10/29/21 01/20/24 Rx 50 mg-325 mg-40 mg capsule fluoxetine 20 mg capsule 20 mg PO DAILY 11/27/21 01/20/24 History Exam Const General: cooperative and no acute distress Orientation: alert, awake and oriented x3 HENMT Head: normal to inspection Eyes General: appearance normal, both eyes and all related structures Neck Neck: normal visual inspection, full ROM and no lymphadenopathy Resp Auscultation: clear to auscultation bilaterally Cardio Rate: regular rate Rhythm: regular rhythm GI Inspection: normal to inspection Palpation: soft and nontender Other: tender erythema on posterior right side of anus. seems consistent with thrombosed hemorrhoid or abscess. unable to tolerate digital rectal exam because of pain Results Last Vital Signs Temp 98.1 F 01/20/24 14:58 Pulse 96 H 01/20/24 14:58 Resp 20 01/20/24 14:58 BP 144/90 H 01/20/24 14:58 Pulse Ox 95 01/20/24 14:58
[2024-01-20 16:25] VITALS: BMI 54.6
[2024-01-20 16:31] VITALS: BP 144/90; PULSE 96; RESP 20; TEMP 36.7; O2SAT 95
[2024-01-20 16:49] VITALS: BP 144/90; PULSE 96; RESP 20; TEMP 36.7; O2SAT 95
[2024-01-20] MEDS: Bupivacaine LIPOSOME/PF 133 MG/10 ML VIAL IJ (17:32)
[2024-01-20] MEDS: Bupivacaine 0.25% Pres-Free 10 ML VIAL (17:32)
--- NOTE | 2024-01-20 18:02 | W.PM.DSUDISC ---
Date of service: 01/20/24 Time of Service: 18:02 Discharge Plan Disposition Patient Disposition: Home Condition: Good Discharge Details Reason For Visit: Hemmorhoid Attending Provider: Madi Brito Primary Care Provider: Noam Ferreira Home Meds and New Rx's Prescriptions: New hydromorphone [Dilaudid] 2 mg tablet 2 mg PO Q6H PRNQty: 12 0RF Rx Instructions: Take 1 tablet by mouth if needed for severe pain. Do not drive while using this medication. Continued acetaminophen 500 mg capsule 1,000 mg PO Q6H PRN fluoxetine 20 mg capsule 20 mg PO DAILY vcaibzpskt-neewofynadfwm-taid 50-325-40 mg capsule 1 cap PO Q6H PRN (Reason: headache) Qty: 10 0RF Rx Instructions: Do not take more than 6 tablets in 24 hours Discharge Instructions Instructions: Anal Fissure (DC), Hemorrhoidectomy (DC) Additional Instructions: Alee, it was a pleasure meeting you today, and hopefully the procedure we did will provide you some relief. During the course of the examination, I saw the anal fissure that you have been dealing with. Adjacent to this was a thrombosed hemorrhoid. I incised the skin a little bit adjacent to the fissure to ensure that there was no underlying infection. Although I did not find any obvious collections of infection in the area, I did take a specimen to test for bacteria if it is the case that we need to use antibiotics in the days to come. The fissure tracks slightly towards your right side, and I suspect was contributing to the acutely thrombosed hemorrhoid. I made an incision over this hemorrhoid, dissected it free, and removed it. There are a few stitches in the skin where the hemorrhoid was removed. Everything was rinsed clean, and I did not see any other abnormalities. For now, we will allow the area little bit of time to heal. Hopefully with the hemorrhoid removed, your pain will decrease. As I mentioned in the operating room, it will be a little difficult to say whether or not the fissure will continue to give you problems. You will certainly notice some more discomfort around your anus as the spinal anesthesia wears off. I did use a long-acting anesthetic immediately around the surgical area to help provide some relief. I recommend continuing with all the other treatments that you have been using for hemorrhoid and fissure relief. I do think that the compounded ointment that you were prescribed may be helpful, so I would encourage you to continue that. I added a prescription for a medication called Dilaudid if Tylenol and ibuprofen are not enough to cover the pain over the next few days. Follow the instructions below, and my office will be in touch tomorrow to schedule a follow-up appointment with you. If you have any questions in the meantime, please do not hesitate to call at any point. 1. Resume all of your regular medications. 2. Continue with sitz bath's every day as needed to help with pain. And after every bowel movement 3. Use fwzm-cbm-[id number] Tylenol and ibuprofen. Alternate these every 6 hours for the first 2 days. Then moved to using them as needed. Use the prescription for Dilaudid if necessary for more severe pain. 4. Use a menstrual pad as a bandage in the area. Change after each bowel movement or as needed 5. Call the office (or go directly to the emergency room after hours) if you notice any of the following: Develop chills (warm to touch), or if you have a thermometer and your temperature is above 101 Difficulty breathing or difficultly swallowing Persistent vomiting Any bleeding ? exceeding one tablespoon 6. Call your physician if the site where your intravenous was started becomes red, swollen, painful, and warm to touch. Activity:: Activity as Tolerated Remove Dressings/Wound Care:: 24 hours Shower/Bathe:: 24 hours Diet:: As Tolerated DS: Diagnosis Discharge Diagnosis (1) External hemorrhoid, thrombosed: Status: Acute Asessment and Plan: Discharge home with outpatient follow-up next week
[2024-01-20 18:18] VITALS: BP 122/80; PULSE 75; RESP 14; TEMP 36; O2SAT 100
--- NOTE | 2024-01-20 18:18 | ROE_ITS ---
Date of service: 01/20/24 Time of Service: 18:18 Operative Note Operative Note DATE OF PROCEDURE: 01/20/24 PRE-OP DIAGNOSIS: Thrombosed hemorrhoid POST-OP DIAGNOSIS: other (Anal fissure and thrombosed hemorrhoid) PROCEDURE: Anorectal exam under anesthesia with external hemorrhoidectomy SURGEON: Madi Brito ANESTHESIA TYPE: Local By Surgeon and Spinal Refer to Anesthesia Record ESTIMATED BLOOD LOSS: 10 PATHOLOGY: none sent COMPLICATIONS: None Patient was transported to: floor Patient's condition: stable Indications: Alee is a 33-year-old woman with a known anal fissure, as well as hemorrhoids. She comes to the emergency department with acute exacerbation of anal pain, and clinical findings consistent with a thrombosed hemorrhoid. Findings: Thrombosed external hemorrhoid of the right posterior column. 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 Great care was taken to pad and support her appropriately. The perineum and anus were then prepped and draped in the usual fashion. Next, using local anesthetic with Exparel, I established a generous perianal field block. The external exam revealed a posterior, almost midline anal fissure. There was some granulation tissue at the base. At the external margin of the fissure was a edematous, and chronically swollen skin pile. There was a very small amount of fluid associated with this. Although it was slightly pale-tinged, it did not appear consistent with pus. Specimens were obtained for Gram stain and culture. The adjacent skin was slightly incised to ensure that the fissure itself did not track out into the soft tissues. Aside from some thickened granulation tissue. This all looked normal. The fissure itself did track slightly towards the patient's right side, almost undermining the right posterior hemorrhoidal column. There was a thrombosed hemorrhoid at this location. Therefore, another incision was made over the most prominent portion of the hemorrhoid. Skin was dissected down onto the hemorrhoid, which was carefully dissected away from the surrounding tissues. Analysis forcep was used to hold the hemorrhoid. Proximal and distal aspects of the vein were gently dissected free, and then sealed and divided with the small LigaSure device. The site was then irrigated. It was hemostatic. Next, interrupted 3-0 Vicryl s titches were used to approximate the overlying skin. Given the fact that we are here for an acutely thrombosed hemorrhoid, elected to do nothing further with the fissure. I do have some concerns given that it slightly undermines towards the patient's right side, but I do not think there will be any benefit to cannulating the tract with a seton given that it appears clean, and well- drained. Certainly it does not have classic features of a fistula. Next, I performed a digital rectal examination. I did not appreciate any other pathology in the anal column. Finally, we irrigated and washed all the skin clean. Menstrual pad was used as a dressing, and the patient was moved out of lithotomy positioning and back onto the hospital stretcher for transfer and recovery up on the floor.
--- NOTE | 2024-01-20 18:25 | NUR.NOTE ---
Assumed care from OR and LABEL CODER for recovery. Pt awake and alert. VSS. Will ensure pt tolerating POintake, voiding and able to ambulate prior to d/c. Spinal block still in effect, will continue to monitor. Nursing Note:
[2024-01-20] MEDS: traMADol 50 MG TAB PO (20:18)
--- NOTE | 2024-01-21 07:25 | W.ANESPOSTOP ---
Postoperative Evaluation Date, Time and Location Date Performed: 01/20/24 Time Performed: 18:11 Patient Location: Med/Surg Vital Signs Most Recent Imported Vital Signs: Most Recent Vital Signs Temp Pulse Resp BP Pulse Ox 36 C L 75 14 122/80 100 01/20/24 18:18 01/20/24 18:18 01/20/24 18:18 01/20/24 18:18 01/20/24 18:18 Pain Score Most Recent Pain Score: Most Recent Pain Score Pain Level 8 01/20/24 20:18 Assessment Mental Status: Awake (Alert & Oriented to Patient Baseline) Airway and Respiratory Function: Patent airway with normal (patient baseline) respiratory exam Cardiovascular Function: Hemodynamically Stable Hydration Status: Adequately Hydrated Nausea & Vomiting: No Nausea or Vomiting Pain: Pt. Denies Any Pain Peripheral Nerve Block: Regional nerve block not resolved at time of post operative discharge Postoperative Comments:: SAB had not resolved at time of disposition to Med/Surg. RN report given.
== END 2024-01-20 20:41 | disposition home or self-care (01) ==
LOC: ER 16:23 → DSU 16:48 → MS 19:37
PROVIDERS: Admitting Provider Surgery; Emergency Provider Student in an Organized Health Care Education/Training Program; PCP Nurse Practitioner Family; Visit Provider Surgery
PROC: (CPT 46320; principal; 2024-01-20 16:20)
DX: K64.5 Perianal venous thrombosis (principal); K60.1 Chronic anal fissure
CPT/HCPCS: 46320; 81025; 99285; 87070; 87075; 87205; C9290; J0665; J2250; J2401; J2405

== ENCOUNTER 2024-06-15 18:18 | Outpatient (REF) | payer MEDICAID, SELFPAY ==
[2024-06-15 19:18] LABS: Abs Immature Grans 0.02 10^3/uL (0.0-0.06); Absolute Basophil Count 0.12 10^3/uL (0.0-0.2); Absolute Eosinophil Count 0.09 10^3/uL (0.0-0.7); Absolute Lymphocyte Count 3.94 10^3/uL (1.2-3.4); Absolute Monocyte Count 0.96 10^3/uL (0.1-0.8); Absolute Neutrophil Count 4.33 10^3/uL (1.2-6.7); Basophils % 1.3 %; HGB 13.3 g/dL (11.2-15.7); Immature Grans % 0.2 %; Lymphocytes % 41.6 %; MCH 25.2 pg (27.0-33.0); MCHC 30.9 % (32.0-36.0); MCV 81 fL (80-95); MPV 10.7 fL (8.0-11.0); Monocytes % 10.1 %; Neutrophils % 45.8 %; Platelet Count 374 10^3/uL (130-400); RBC 5.28 10^6/uL (3.93-5.22); RDW 14.7 % (11.7-14.6); RDW-SD 43.4 fL; WBC 9.46 10^3/uL (4.4-10.8)
[2024-06-15 19:47] LABS: ALT 27 U/L (14-59); AST 25 U/L (15-37); Albumin 3.7 g/dL (3.4-5.0); Alkaline Phosphatase 77 U/L (46-116); Anion Gap 10.1 mmol/L (3-11); BUN 14 mg/dL (7-18); Bilirubin, Total 0.27 mg/dL (0.2-1.0); CO2 24.9 mmol/L (21.0-32.0); CREATININE 1.1 mg/dL (0.55-1.02); Calcium 9.1 mg/dL (8.5-10.1); Chloride 103 mmol/L (98-107); Glucose 114 mg/dL (74-106); Hemoglobin A1C 5.4 % (<5.7); Potassium 3.6 mmol/L (3.5-5.1); Sodium 138 mmol/L (136-145); TSH (W/Ref FT4) 7.05 uIU/mL (0.36-3.74); Total Protein 7.9 g/dL (6.4-8.2)
[2024-06-15 20:31] LABS: FREE T4 1.13 ng/dL (0.76-1.46)
[2024-06-18 09:59] LABS: FSH 6.4 mIU/mL (See Note)
== END 2024-06-15 18:19 | disposition home or self-care (01) ==
LOC: NCHCN 18:18
PROVIDERS: PCP Nurse Practitioner Family; Visit Provider Nurse Practitioner Family
DX: R73.03 Prediabetes (principal); R23.2 Flushing
CPT/HCPCS: 80053; 83001; 83036; 84439; 84443; 85025